=== PATIENT | male | born 1975 | race Caucasian/White ===

== ENCOUNTER 2021-05-16 13:15 | Outpatient (CLI) | payer SELFPAY ==
[2021-05-16 13:38] VITALS: BP 153/100; PULSE 84; RESP 16; TEMP 36.4; O2SAT 97; BMI 42.3
[2021-05-16 14:35] VITALS: BP 143/94; PULSE 109; RESP 15; O2SAT 96
[2021-05-16 15:37] VITALS: BP 140/85; PULSE 104; RESP 16; TEMP 36.8; O2SAT 94
== END 2021-05-16 13:16 | disposition home or self-care (01) ==
LOC: OPS 13:21
PROVIDERS: Visit Provider Nurse Practitioner Family
DX: U07.1 COVID-19 (principal)
CPT/HCPCS: 87426; 96365